=== PATIENT | male | born 1970 | race Caucasian/White ===

== ENCOUNTER 2022-05-01 16:00 | Inpatient (IN) | payer BC ==
[~2022-05-01] VITALS: Ht 188 cm; Wt 89.8 kg
[~2022-05-01 16:00] MED LIST: FLEXERIL 10 MG10 MG PO; MORPHINE SULFAT15 M1 PO
[2022-05-01 17:15] LABS: HEMOGLOBIN 16.3 gm/dl (14.0-17.5); RED BLOOD COUNT 5.61 M/UL (4.20-5.50); WHITE BLOOD COUNT 10.6 K/UL (4.5-11.0)
[2022-05-01 17:33] LABS: BUN/CREATININE RATIO 13 (0-10)
[2022-05-01] MEDS ORDERED: ONDANSETRON ODT4 MG PO (18:45)
[2022-05-01] MEDS ORDERED: PROPRANOLOL HCL20 MG PO (18:46)
[2022-05-01] MEDS ORDERED: KETOROLAC TROME10 MG PO (18:46)
[2022-05-01] MEDS ORDERED: IBUPROFEN200 M1 PO (18:46)
[2022-05-02 02:59] LABS: HEMOGLOBIN 15.5 gm/dl (14.0-17.5); RED BLOOD COUNT 5.25 M/UL (4.20-5.50); WHITE BLOOD COUNT 11.2 K/UL (4.5-11.0)
[2022-05-02 04:08] LABS: BUN/CREATININE RATIO 13 (0-10)
[2022-05-02] MEDS ORDERED: LOPRESSOR 25 MG25 MG PO (13:38)
[2022-05-02] MEDS ORDERED: ATORVASTATIN CA20 MG PO (13:38)
[2022-05-02] MEDS ORDERED: BRILINTA 90 MG90 MG PO (13:38)
[2022-05-02] MEDS ORDERED: ASPIRIN EC81 MG PO (13:38)
== END 2022-05-02 17:00 | disposition home or self-care (01) | DRG 247 ==
LOC: ER1 16:00 → CCU 18:02 → CDU 18:02 → CCU 20:20
PROVIDERS: Emergency Medicine; ADMIT Internal Medicine
PROC: 027034Z Dilation of Coronary Artery, One Artery with Drug-eluting Intraluminal Device, Percutaneous Approach (ICD-10-PCS; 2022-05-01)
PROC: 4A023N7 Measurement of Cardiac Sampling and Pressure, Left Heart, Percutaneous Approach (ICD-10-PCS; 2022-05-01)
PROC: B2111ZZ Fluoroscopy of Multiple Coronary Arteries using Low Osmolar Contrast (ICD-10-PCS; 2022-05-01)
PROC: B24BZZZ Ultrasonography of Heart with Aorta (ICD-10-PCS; principal; 2022-05-02)
DX: I21.19 ST elevation (STEMI) myocardial infarction involving other coronary artery of inferior wall (principal); I16.1 Hypertensive emergency; G43.909 Migraine, unspecified, not intractable, without status migrainosus; F17.200 Nicotine dependence, unspecified, uncomplicated; Z88.0 Allergy status to penicillin; Z98.890 Other specified postprocedural states; Z82.49 Family history of ischemic heart disease and other diseases of the circulatory system; Z79.899 Other long term (current) drug therapy; Z79.82 Long term (current) use of aspirin
CPT/HCPCS: ECHO; 36415; 71045; 80048; 80053; 80061; 82550; 82553; 83036; 83540; 83550; 83735; 83880; 84100; 84132; 84484; 85025; 85027; 85347; 85610; 85730; 93005; 93306; 96374; 96375; 99152; 99153; 99285; C1725; C1769; C1874; C1887; J1644; J2270; J2405; J7040